=== PATIENT | male | born 1960 | race Hispanic/Latino ===

== ENCOUNTER 2018-02-22 07:05 | Day surgery (SDC) | payer MEDICAID ==
[2016-06-14 13:24] VITALS: BMI 26.6
[2016-06-22 15:00] VITALS: PULSE 91
[2018-02-22] MEDS ORDERED: Lactated Ringer's 500 ML IV ONE (07:46)
[2018-02-22 08:03] VITALS: TEMP 96.8
[2018-02-22] MEDS ORDERED: Etomidate 20 mg/10ml Inj IV ONE (08:49)
[2018-02-22] MEDS ORDERED: Midazolam 2 MG/2 ML VIAL ONE (08:49)
[2018-02-22 09:45] VITALS: BP 111/60; PULSE 72; RESP 21; O2SAT 97
== END 2018-02-22 10:07 | disposition home or self-care (01) ==
LOC: H.ENDO 07:05
PROVIDERS: ATTEND Internal Medicine Gastroenterology
DX: Z12.11 Encounter for screening for malignant neoplasm of colon (principal); D12.0 Benign neoplasm of cecum; D12.2 Benign neoplasm of ascending colon; K57.30 Diverticulosis of large intestine without perforation or abscess without bleeding; K64.8 Other hemorrhoids; Z86.010 Personal history of colon polyps
CPT/HCPCS: 45380; 88305; J2001; J2250; J7120

== ENCOUNTER 2019-01-19 18:15 | Inpatient (IN) | payer BC ==
[2019-01-19 18:15] VITALS: PULSE 91; BMI 26.6
[2019-01-19 19:00] LABS: BASO # 0.1 K/uL (0.0-0.2); BASO % 0.8 % (0.0-2.0); EOS # 1.3 K/uL (0.0-0.7); EOS % 13.2 % (0.0-4.0); LYMPH % 20.6 % (20.0-40.0); MEAN CORPUSCULAR HEMOGLOBIN 32.3 pg (27.0-31.0); MEAN CORPUSCULAR HGB CONC 34.1 g/dL (33.0-37.0); MEAN PLATELET VOLUME 7.9 fl (7.2-11.7); MONO # 0.7 K/uL (0.0-0.8); MONO % 6.6 % (0.0-10.0); NEUT # 5.8 K/uL (1.8-7.0); NEUT % 58.8 % (50.0-75.0); RBC 4.04 Mil/uL (4.40-5.90); RED CELL DISTRIBUTION WIDTH 13.7 % (11.5-14.5); WHITE BLOOD COUNT 9.9 K/uL (4.8-10.8)
--- NOTE | 2019-01-19 19:01 | CT ---
Date of service: 01/19/2019 PROCEDURE: CT HEAD WITHOUT CONTRAST. HISTORY: TIA, initial exam COMPARISON: No prior study available for comparison. TECHNIQUE: Axial computed tomography images were obtained through the head/brain without intravenous contrast. Radiation dose: Total exam DLP = 981.7 mGy-cm. This CT exam was performed using one or more of the following dose reduction techniques: Automated exposure control, adjustment of the mA and/or kV according to patient size, and/or use of iterative reconstruction technique. FINDINGS: HEMORRHAGE: No acute parenchymal, subarachnoid or extra-axial hemorrhage. BRAIN: Moderate chronic periventricular white matter ischemic changes seen extending peripherally into the deep and subcortical white matter both cerebral hemispheres. In addition, multiple more discrete subcortical and deep white matter ischemic changes and bilateral basal nuclei lacunar type infarcts are present. Note the possibility of a small hyperacute infarct cannot be excluded based on this study. Clinical correlation recommended. Emergent MRI could be performed if further evaluation is required. Note that these findings were discussed with Dr. Neumann is at approximately 6:54 p.m. with written down and read back verification. Moderate generalized volume loss. Vascular calcifications both carotid siphons. VENTRICLES: No obstructive hydrocephalus. CALVARIUM: Calvarium intact. PARANASAL SINUSES: There is a large elliptical shaped soft tissue density within the right maxillary antrum that could represent large polyp.. This is surrounded by lower attenuation opacity which could represent fluid. Questionable polyps within the right nasal cavity versus possible extension of the aforementioned inflammatory process or possibly mucocele medially through the wall of the right maxillary antrum. Follow-up ENT consultation may be prudent for further evaluation There is also mild mucosal thickening seen within the ethmoid air complex and to a lesser degree sphenoid sinus. MASTOID AIR CELLS: Unremarkable as visualized. No inflammatory changes. OTHER FINDINGS: Changes of bilateral cataract surgery. IMPRESSION: No acute intracranial hemorrhage. Moderate chronic periventricular white matter ischemic changes seen extending peripherally into the deep and subcortical white matter both cerebral hemispheres. In addition, multiple more discrete subcortical and deep white matter ischemic changes and bilateral basal nuclei lacunar type infarcts are present. Note the possibility of a small hyperacute infarct cannot be excluded based on this study. Clinical correlation recommended. Emergent MRI could be performed if further evaluation is required. Note that these findings were discussed with Dr. Neumann is at approximately 6:54 p.m. with written down and read back verification. Moderate generalized volume loss. Complete opacification right maxillary antrum with what appears represent elliptical shaped on focus of polypoid like mucosal thickening and peripheral surrounding low-attenuation proteinaceous fluid.. Questionable protrusion of these changes medially into the nasal cavity (such as a mucocele) versus possibility of a nasal polyp. Consider follow-up ENT consultation.
[2019-01-19 19:03] LABS: HEMOGLOBIN 13.1 g/dL (12.0-18.0); MEAN CELL VOLUME 94.8 fl (80.0-94.0)
[2019-01-19] MEDS ORDERED: Iodixanol 320 MG/ML 100 ML BOTTLE IV ONE (19:03)
[2019-01-19] MEDS ORDERED: Sodium Chloride 0.9% 50 ML IV ONE (19:03)
[2019-01-19 19:12] LABS: INR 0.9; PROTHROMBIN TIME 10.7 Seconds (9.8-13.1)
[2019-01-19] MEDS ORDERED: Aspirin 325 mg EC Tablets PO ONE (19:12)
[2019-01-19 19:13] LABS: ALB/GLOB RATIO 1.6 (1.0-2.1); ALBUMIN 4.1 g/dL (3.5-5.0); ALT/SGPT 38 U/L (21-72); AST/SGOT 29 U/L (17-59); BLOOD UREA NITROGEN 18 mg/dl (9-20); CALCIUM 9.5 mg/dL (8.4-10.2); GFR NON-AFRICAN AMERICAN 57; HDL CHOLESTEROL 38 MG/DL (30-70)
[2019-01-19] MEDS ORDERED: Aspirin 325 mg EC Tablets PO STA (19:13)
[2019-01-19 19:14] LABS: PARTIAL THROMBOPLASTIN TIME 30.8 Seconds (25.6-37.1)
--- NOTE | 2019-01-19 19:15 | ED PDOC ---
HPI:STROKE - Time Time: 18:30 - Historian Historian: Patient - Chief Complaint Chief Complaint: Arm weakness (and numbness) - Onset Date: 01/19/19 Time: 07:30 Onset: This morning - Timing Timing: Currently Symptomatic - Notes: Notes:: 58 year old male presents to the ED for evaluation of right arm weakness and numbness which he woke up with this morning around 0730. He states his arm feels heavy. Patient has a history of TIA that caused right sided facial droop, but no arm weakness. Today, he notes having difficulty balancing, but denies further headache, shortness of breath, and chest pain. He says that he did not come in right away because he thought it was secondary to sleeping on the arm awkwardly, but when he told his when she got home, she told him to come in. NIHSS Stroke Scale - Date/Time Evaluation Performed Date Performed: 01/19/19 Time Performed: 18:30 When Was NIHSS Performed: Baseline - How Severe is the Stroke Level of Consciousness: 0=Alert LOC to Questions: 0=Both comments correct LOC to commands: 0=Obeys both correctly Best Gaze: 0=Normal Visual: 0=No visual loss Facial: 1=Minor asymmetry Motor Arm - Left: 0=No drift Motor Arm - Right: 1=Drift noted before 10 sec Motor Leg - Left: 0=No drift Motor Leg - Right: 0=No drift Limb Ataxia: 0=Absent Sensory: 0=Normal Best Language: 0=No aphasia Dysarthia: 0=Normal articulation Extinction & Inattention (Neglect): 0=Normal, no object Score: 2 rTPA Inclusion/Exclusion - Refusal of Treatment Patient Refused Treatment: No - Inclusion Criteria for Altepase All of the below criteria for inclusion were reviewed: Yes Patient is 18 years or Older: Yes The Clinical Diagnosis of Ischemic Stroke That is Causing a Potentially Disabling Neurological Deficit: Yes Time of Onset is Well Established to be Less Than 270 Minute Before Treatment Would Begin: No Risk/Benefit Discussed With Patient/Family Member Present: No Past Medical History Reviewed: Historical Data, Nursing Documentation, Vital Signs Vital Signs: Last Vital Signs Temp 98.1 F 01/19/19 18:57 Pulse 83 01/19/19 18:57 Resp 16 01/19/19 18:57 BP 134/75 01/19/19 18:57 Pulse Ox 98 01/19/19 18:57 Primary Care Provider: Kandice Wong - Medical History PMH: Anxiety, Cardia Arrhythmia, COPD, Diabetes (pre-diabetic), Emphysema, Hypercholesterolemia, Chronic Kidney Disease, TIA Denies: HIV - Surgical History Other surgeries: cardaic ablation - Family History Family History: States: Hypertension - Social History Current smoker - smoking cessation education provided: Yes - Home Medications Home Medications: Ambulatory Orders Medication Instructions Recorded Atorvastatin Calcium [Lipitor] 40 mg PO DAILY #0 tab 03/18/15 Aspirin [Ecotrin] 81 mg PO DAILY #0 tabec 06/23/16 Escitalopram [Lexapro] 2 tab PO DAILY 02/22/18 - Allergies Allergies/Adverse Reactions: Allergies Allergy/AdvReac Type Severity Reaction Status Date / Time No Known Allergies Allergy Verified 02/22/18 07:53 Review of Systems ROS Statement: Except As Marked, All Systems Reviewed And Found Negative Cardiovascular: Negative for: Chest Pain Respiratory: Negative for: Shortness of Breath Neurological: Positive for: Weakness (right arm), Numbness (right arm), Incoordination (difficulty balancing all day), Other (baseline right facial droop). Negative for: Headache Physical Exam - Reviewed Nursing Documentation Reviewed: Yes Vital Signs Reviewed: Yes - Physical Exam Appears: Positive for: Non-toxic, No Acute Distress Head Exam: Positive for: ATRAUMATIC, NORMOCEPHALIC Skin: Positive for: Warm, Dry Eye Exam: Positive for: EOMI, PERRL ENT: Negative for: Pharyngeal Erythema, Tonsillar Exudate Neck: Positive for: Painless ROM, Supple Cardiovascular/Chest: Positive for: Regular Rate, Rhythm. Negative for: Murmur Respiratory: Positive for: Normal Breath Sounds. Negative for: Respiratory Di stress Gastrointestinal/Abdominal: Positive for: Soft. Negative for: Tenderness Back: Positive for: Normal Inspection. Negative for: Decreased ROM Extremity: Positive for: Normal ROM. Negative for: Deformity Lymphatic: Negative for: Adenopathy Neurological/Psych: Positive for: Awake, Alert, Oriented (x3), Cerebellar Tests (normal finger to nose and heel to gardiner), Facial Droop (right sided - reported as old), Other (right pronator drift; speech normal) - Laboratory Results Result Diagrams: 01/19/19 18:50 01/19/19 18:50 - ECG ECG: Positive for: Interpreted By Me ECG Rhythm: Positive for: Normal ST Segment, Sinus Rhythm, Right Bundle Branch Block O2 Sat by Pulse Oximetry: 98 (RA) Pulse Ox Interpretation: Normal - Progress Re-evaluation Time: 20:00 Condition: Unchanged Medical Decision Making Medical Decision Making: Time: 1840 Initial Impression: right arm weakness Initial Plan: --Code stroke called --CT Angio --CT Head without contrast --EKG --CMP --Hemoglobin A1C --Lipid panel --Trop I --CBC with differential --PT / PTT --CXR --Accucheck --Aspirin 325mg PO --Normal saline IV Accession No. : [id number] Patient Name / ID : RUMA Cleaning / [id number] Exam Date : 01/19/2019 18:44:04 ( Approved ) Study Comment : Sex / Age : M / 58Y Creator : Nathan Davis MD Dictator : Nathan Davis MD Rv Body Mechanic : Storeroom Keeper : Nathan Davis MD Approver2 : Report Date : 01/19/2019 18:57:45 My Comment : Date of service: 01/19/2019 PROCEDURE: CT HEAD WITHOUT CONTRAST. HISTORY: TIA, initial exam COMPARISON: No prior study available for comparison. TECHNIQUE: Axial computed tomography images were obtained through the head/brain without intravenous contrast. Radiation dose: Total exam DLP = 981.7 mGy-cm. This CT exam was performed using one or more of the following dose reduction techniques: Automated exposure control, adjustment of the mA and/or kV according to patient size, and/or use of iterative reconstruction technique. FINDINGS: HEMORRHAGE: No acute parenchymal, subarachnoid or extra-axial hemorrhage. BRAIN: Moderate chronic periventricular white matter ischemic changes seen extending peripherally into the deep and subcortical white matter both cerebral hemispheres. In addition, multiple more discrete subcortical and deep white matter ischemic changes and bilateral basal nuclei lacunar type infarcts are present. Note the possibility of a small hyperacute infarct cannot be excluded based on this study. Clinical correlation recommended. Emergent MRI could be performed if further evaluation is required. Note that these findings were discussed with Dr. Neumann is at approximately 6:54 p.m. with written down and read back verification. Moderate generalized volume loss. Vascular calcifications both carotid siphons. VENTRICLES: No obstructive hydrocephalus. CALVARIUM: Calvarium intact. PARANASAL SINUSES: There is a large elliptical shaped soft tissue density within the right maxillary antrum that could represent large polyp.. This is surrounded by lower attenuation opacity which could represent fluid. Questionable polyps within the right nasal cavity versus possible extension of the aforementioned inflammatory process or possibly mucocele medially through the wall of the right maxillary antrum. Follow-up ENT consultation may be prudent for further evaluation There is also mild mucosal thickening seen within the ethmoid air complex and to a lesser degree sphenoid sinus. MASTOID AIR CELLS: Unremarkable as visualized. No inflammatory changes. OTHER FINDINGS: Changes of bilateral cataract surgery. IMPRESSION: No acute intracranial hemorrhage. Moderate chronic periventricular white matter ischemic changes seen extending peripherally into the deep and subcortical white matter both cerebral hemispheres. In addition, multiple more discrete subcortical and deep white matter ischemic changes and bilateral basal nuclei lacunar type infarcts are present. Note the possibility of a small hyperacute infarct cannot be excluded based on this study. Clinical correlation recommended. Emergent MRI could be performed if further evaluation is required. Note that these findings were disc ussed with Dr. Neumann is at approximately 6:54 p.m. with written down and read back verification. Moderate generalized volume loss. Complete opacification right maxillary antrum with what appears represent elliptical shaped on focus of polypoid like mucosal thickening and peripheral surrounding low-attenuation proteinaceous fluid.. Questionable protrusion of these changes medially into the nasal cavity (such as a mucocele) versus possibility of a nasal polyp. Consider follow-up ENT consultation. 7p SC[facility]LET [facility]. Pt to have CTA and then MRI in AM. Aspirin recommended. Will eval pt in hospital. SCARLET pt findings and plan of care SCARLET Flores Hospitalist for admission to Dr Wong [facility] Name: MAGGIE HENDRIX Exam Date: January 19, 2019 8:21:18 PM EDT Modality Type: CT Description: CTA BRAIN, CTA NECK Gender: M Laterality: Not applicable : 58 Referring Physician: Mahi Neumann EXAM: CTA Head and Neck with Intravenous Contrast. CLINICAL HISTORY: Right arm numbness TECHNIQUE: Axial CTA images of the head and neck performed with intravenous contrast. MIP reconstructed images were created and reviewed. CONTRAST: With; [id number] [id number] was injected intravenously without incident. COMPARISON: Comparison is made to CT brain evaluation performed earlier the same date. FINDINGS: VASCULATURE: NECK: COMMON CAROTID ARTERIES No significant stenosis. No dissection or occlusion. Minimal atheromatous plaquing is seen in the posterior right carotid bulb. EXTERNAL CAROTID ARTERIES Patent. NECK: INTERNAL CAROTID ARTERIES No stenosis by NASCET criteria. No dissection or occlusion. VERTEBRAL ARTERIES No significant stenosis. No dissection or occlusion. HEAD: ANTERIOR CEREBRAL ARTERIES No significant stenosis. No occlusion. No aneurysm. MIDDLE CEREBRAL ARTERIES No significant stenosis. No occlusion. No aneurysm. POSTERIOR CEREBRAL ARTERIES No significant stenosis. No occlusion. No aneurysm. BASILAR ARTERY No significant stenosis. No occlusion. No aneurysm. OTHER: SOFT TISSUES No acute finding. BONES No acute osseous abnormality. There is evidence of degenerative disc disease seen at C3-4, C5-6, C6-7. PARANASAL SINUSES: Total opacification of the right maxillary sinus and mucoperiosteal thickening noted in the inferior left maxillary sinus compatible with sinusitis. IMPRESSION: 1. Minimal atheromatous plaquing seen in the posterior right carotid bulb. 2. Otherwise, unremarkable CTA of the head and neck. 3. Multilevel degenerative disc disease in the cervical spine as described above. 4. Bilateral maxillary sinusitis noted; more pronounced on the right. Electronically signed on January 19, 2019 9:28:40 PM EDT by: Aurelio Mitchell M.D., M.B.A., Certified By [employer] Trained MRI and CT Specialist Scribe Attestation: Documented by Leela De Anda, acting as a scribe for Mahi Neumann MD. Provider Scribe Attestation: All medical record entries made by the Scribe were at my direction and personally dictated by me. I have reviewed the chart and agree that the record accurately reflects my personal performance of the history, physical exam, medical decision making, and the department course for this patient. I have also personally directed, reviewed, and agree with the discharge instructions and disposition. Disposition - Clinical Impression Clinical Impression: Right arm weakness Counseled Patient/Family Regarding: Studies Performed, Diagnosis - Disposition Disposition Time: 19:00 Condition: FAIR - Pt Status Changed To: Hospital Disposition Of: Inpatient - Admit Certification Admit to Inpatient:: After my assessment, the patient will require hospitalization for at least two midnights. This is because of the severity of symptoms shown, intensity of services needed, and/or the medical risk in this patient being treated as an outpatient. - POA Present On Arrival: None Core Measure Indicators: Code Stroke
[2019-01-19] MEDS: Sodium Chloride 0.9% 1,000 ML IV SCH (19:19)
[2019-01-19 19:24] LABS: LDL CHOLESTEROL 90 mg/dL (0-129)
[2019-01-19] MEDS ORDERED: Albuterol-Ipratrop 3 mg / 0.5 (3 ml) UD INH PRN (20:19)
--- NOTE | 2019-01-19 20:26 | CP.PCM.HP ---
History of Present Illness - History of Present Illness History of Present Illness: CC: numbness of hands HPI: 58 YO Male with PMHx of TIA/CVA (R sided residual facial droop), COPD, depression, ETOH and tobacco abuse presents to [facility] ED for R arm numbness. Patient states he woke up with R arm numbness this morning around 7:30AM. There was no other weakness or numbness, headache, vision, speech, or mental status change reported. Weakness and numbness in the RUQ persisted throughout the day which brought patient to the ED. present by bedside reports same story. PMD: Dr. Wong Cardiology: Dr. 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), glucoma, hx of DVT per ecw review SurhGx: cardiac ablation for arrhythmia, complicated FHx: multiple strokes in father SHx: , ETOH-vodka every other day 2-3 drinks (20+ years), smoking currently 1/5 pack a day (30+yrs) and denies illicit drug use NKDA Present on Admission - Present on Admission Any Indicators Present on Admission: No Review of Systems - Constitutional Constitutional: absent: Chills, Fever - EENT Eyes: absent: Blurred Vision - Cardiovascular Cardiovascular: absent: Chest Pain, Dyspnea, Palpitations - Respiratory Respiratory: absent: Cough, Dyspnea - Gastrointestinal Gastrointestinal: absent: Abdominal Pain - Musculoskeletal Musculoskeletal: Muscle Weakness (RUE), Numbness (RUE) - Neurological Neurological: Numbness, Focal Weakness. absent: Abnormal Gait, Abnormal Movements, Abnormal Speech, Behavioral Changes, Confusion, Dizziness, Headaches, Lack of Coordination, Syncope Past Patient History - Infectious Disease Hx of Infectious Diseases: None - Tetanus Immunizations Tetanus Immunization: Unknown, Up to Date - Past Medical History & Family History Past Medical History?: Yes - Past Social History Smoking Status: Heavy Smoker > 10 Cigarettes Daily Alcohol: > 2 Drinks/Day Drugs: Denies Home Situation {Lives}: With Family - CARDIAC Hx Cardia Arrhythmia: Yes Hx Hypercholesterolemia: Yes - PULMONARY Hx Chronic Obstructive Pulmonary Disease (COPD): Yes Hx Emphysema: Yes - NEUROLOGICAL Hx Transient Ischemic Attacks (TIA): Yes - HEENT Hx HEENT Problems: Yes Hx Cataracts: Yes Hx Glaucoma: Yes - RENAL Hx Chronic Kidney Disease: Yes - ENDOCRINE/METABOLIC Hx Endocrine Disorders: No - HEMATOLOGICAL/ONCOLOGICAL Hx Human Immunodeficiency Virus (HIV): No - INTEGUMENTARY Hx Dermatological Problems: No - MUSCULOSKELETAL/RHEUMATOLOGICAL Hx Musculoskeletal Disorders: No Hx Falls: No - GASTROINTESTINAL Hx Gastrointestinal Disorders: Yes - GENITOURINARY/GYNECOLOGICAL Hx Genitourinary Disorders: No - PSYCHIATRIC Hx Anxiety: Yes - SURGICAL HISTORY Hx Surgeries: Yes Hx Angioplasty: Yes (CARDIAC ABLATION) - ANESTHESIA Hx Anesthesia: Yes Hx Anesthesia Reactions: No Hx Malignant Hyperthermia: No Meds Allergies/Adverse Reactions: Allergies Allergy/AdvReac Type Severity Reaction Status Date / Time No Known Allergies Allergy Verified 02/22/18 07:53 Physical Exam - Constitutional Appears: No Acute Distress, Other (R sided facial droop noted, mild) - Eye Exam Eye Exam: EOMI, Normal appearance - ENT Exam ENT Exam: Mucous Membranes Moist - Respiratory Exam Respiratory Exam: Clear to Auscultation Bilateral, Wheezes (faint wheezing lower lobes), NORMAL BREATHING PATTERN. absent: Decreased Breath Sounds - Cardiovascular Exam Cardiovascular Exam: REGULAR RHYTHM, +S1, +S2 - GI/Abdominal Exam GI & Abdominal Exam: Distended, Normal Bowel Sounds, Soft. absent: Guarding, Rigid, Tenderness - Extremities Exam Extremities exam: Positive for: normal inspection. Negative for: calf tenderness, pedal edema - Back Exam Back exam: NORMAL INSPECTION - Neurological Exam Neurological exam: Alert, CN II-XII Intact, Oriented x3, Reflexes Normal Additional comments: No pronator drift strength 4/5 in RUE, mild decrease in sensation in the RUE Full ROM, no pain Heel to gardiner neg ambulatory and no speech defects appreciated - Psychiatric Exam Psychiatric exam: Normal Affect, Normal Mood - Skin Skin Exam: Dry, Intact, Normal Color, Warm Results - Vital Signs Recent Vital Signs: Last Vital Signs Temp 98.1 F 01/19/19 18:57 Pulse 72 01/19/19 20:05 Resp 18 01/19/19 20:05 BP 144/82 01/19/19 20:05 Pulse Ox 98 01/19/19 20:05 - Labs Result Diagrams: 01/19/19 18:50 01/19/19 18:50 Labs: Laboratory Results - last 24 hr 01/19/19 01/19/19 01/19/19 18:41 18:50 18:50 WBC 9.9 RBC 4.04 L Hgb 13.1 D Hct 38.3 MCV 94.8 H D MCH 32.3 H MCHC 34.1 RDW 13.7 Plt Count 258 MPV 7.9 Neut % (Auto) 58.8 Lymph % (Auto) 20.6 Wheeler % (Auto) 6.6 Eos % (Auto) 13.2 H Baso % (Auto) 0.8 Neut # (Auto) 5.8 Lymph # (Auto) 2.0 Wheeler # (Auto) 0.7 Eos # (Auto) 1.3 H Baso # (Auto) 0.1 PT INR APTT Sodium 139 Potassium 4.1 Chloride 105 Carbon Dioxide 24 Anion Gap 14 BUN 18 Creatinine 1.3 Est GFR ( Amer) > 60 Est GFR (Non-Af Amer) 57 POC Glucose (mg/dL) 102 Random Glucose 88 Calcium 9.5 Total Bilirubin 0.4 AST 29 ALT 38 Alkaline Phosphatase 100 Troponin I < 0.0120 Total Protein 6.8 Albumin 4.1 Globulin 2.6 Albumin/Globulin Ratio 1.6 Triglycerides 160 H D Cholesterol 144 LDL Cholesterol Direct 90 HDL Cholesterol 38 Blood Type Antibody Screen BBK History Checked 01/19/19 01/19/19 18:50 18:50 WBC RBC Hgb Hct MCV MCH MCHC RDW Plt Count MPV Neut % (Auto) Lymph % (Auto) Wheeler % (Auto) Eos % (Auto) Baso % (Auto) Neut # (Auto) Lymph # (Auto) Wheeler # (Auto) Eos # (Auto) Baso # (Auto) PT 10.7 INR 0.9 APTT 30.8 Sodium Potassium Chloride Carbon Dioxide Anion Gap BUN Creatinine Est GFR ( Amer) Est GFR (Non-Af Amer) POC Glucose (mg/dL) Random Glucose Calcium Total Bilirubin AST ALT Alkaline Phosphatase Troponin I Total Protein Albumin Globulin Albumin/Globulin Ratio Triglycerides Cholesterol LDL Cholesterol Direct HDL Cholesterol Blood Type O POSITIVE Antibody Screen Negative BBK History Checked No verified bt - EKG Data EKG shows normal: Sinus rhythm Rate: Normal (No acute ST or T waves noted ) Assessment & Plan - Assessment and Plan (Free Text) Assessment: Assessment/Plan: 58 YO Male with PMHx of TIA/CVA (R sided residual facial droop), COPD, hx of HIT, depression, DVT, ETOH and tobacco abuse is admitted for TIA. TIA -Code stroke called -CT head sig for: No acute intracranial hemorrhage. Moderate chronic periventricular white matter ischemic changes. Moderate generalized volume loss. -no tpa administered given time of presentation to ED -s/p asa in ED -Neurology consulted; asa given. MRI/CTA pending; follow up recs -MRI ordered for AM -follow up CTA -passed swallow eval -neuro checks -started on asa and statin -PT/OT consulted COPD -controlled -duonab prn Depression -restart home meds ETOH abuse -currently CIWA <8 -last drink 24+hrs ago -CIWA protocol -Ativan prn Tobacco abuse -c/w nicoderm TD DVT prolx -scds -no Lovenox or heparin given suspected episode of HIT as per PMD
[2019-01-20] MEDS: Sodium Chloride 0.9% 1,000 ML IV SCH (04:57)
[2019-01-20] MEDS ORDERED: Enoxaparin 60 mg Syringe SC SCH (09:00)
--- NOTE | 2019-01-20 11:16 | MRI ---
Date of service: 01/20/2019 PROCEDURE: MRI BRAIN WITHOUT CONTRAST HISTORY: TIA COMPARISON: MRI 03/18/2015 TECHNIQUE: Multiplanar, multisequence MR images of the brain were obtained without intravenous contrast enhancement. FINDINGS: HEMORRHAGE: None DWI: There is an acute infarct in the left aguirre radiata and basal ganglia measuring 20 mm AP x 6 mm wide. BRAIN PARENCHYMA: No mass effect or edema. Chronic microvascular changes are seen in the periventricular white matter. VENTRICLES: Unremarkable. No hydrocephalus. CRANIUM: Unremarkable. ORBITS: Grossly unremarkable. PARANASAL SINUSES/MASTOIDS: There opacification of the right maxillary sinus. VASCULAR SYSTEM: Skull base flow voids intact. OTHER FINDINGS: None. IMPRESSION: There is an acute infarct in the left aguirre radiata and basal ganglia measuring 20 mm AP x 6 mm wide.
--- NOTE | 2019-01-20 11:25 | CT ---
Date of service: 01/19/2019 PROCEDURE: CT Angiography of the neck with contrast HISTORY: RIGHT arm weakness COMPARISON: None. TECHNIQUE: Contiguous axial images of the neck were obtained from the level of the skull-base to the superior mediastinum in the arteriographic phase of enhancement. Coronal and sagittal reformats or also generated. IV contrast dose: 90 cc of Visipaque Radiation dose: Total exam DLP = 0.0 mGy-cm. This CT exam was performed using one or more of the following dose reduction techniques: Automated exposure control, adjustment of the mA and/or kV according to patient size, and/or use of iterative reconstruction technique. FINDINGS: RIGHT CAROTID ARTERIES: Calcified plaque without significant stenosis LEFT CAROTID ARTERIES: Calcified plaque without significant stenosis VERTEBRAL ARTERIES: Right Vertebral Artery: Normal. Left Vertebral Artery: Normal. OTHER FINDINGS: Aortic calcification The report concurs with the preliminary [facility] report IMPRESSION: Bilateral carotid calcifications without significant stenosis CT Angiography of the Brain. HISTORY: RIGHT arm weakness COMPARISON: None available. TECHNIQUE: CT angiography of the intracranial arteries was performed. Coronal and sagittal maximum intensity projection reformated images were generated. Radiation dose: Total exam DLP = 0.0 mGy-cm. This CT exam was performed using one or more of the following dose reduction techniques: Automated exposure control, adjustment of the mA and/or kV according to patient size, and/or use of iterative reconstruction technique. FINDINGS: INTERNAL CEREBRAL ARTERIES: Unremarkable. The skull base, petrous, cavernous and supraclinoid segments are bilaterally widely patent. ANTERIOR CEREBRAL ARTERIES: Unremarkable. A1 and A2 segments are widely patent. Smaller distal branches unremarkable, as visualized. MIDDLE CEREBRAL ARTERIES: Unremarkable. M1 and M2 segments are widely patent. Perisylvian branches grossly symmetric. POSTERIOR CIRCULATION: Basilar Artery: Unremarkable. Distal Vertebral Arteries: Unremarkable. Posterior Cerebral Arteries: Unremarkable. Posterior Inferior Cerebellar Arteries: Unremarkable. ANEURYSM/ VASCULAR MALFORMATIONS: None. OTHER FINDINGS: Complete opacification of the right maxillary sinus. Mucosal thickening in the left maxillary sinus IMPRESSION: Unremarkable CT Angiography of the Brain.
--- NOTE | 2019-01-20 11:54 | CARD ---
APPROVED REPORT Date of service: 01/19/2019 EKG Measurement Heart [id number] <Conclusion> Normal sinus rhythm Left axis deviation Right bundle branch block Abnormal ECG
--- NOTE | 2019-01-20 13:49 | CP.PCM.CON ---
History of Present Illness - History of Present Illness History of Present Illness: Neurology consult note: 58 yr old male who came in as a code stroke but was not TPA candidate now has new Right basal ganglia stroke, that is most likely ischemic in nature, who now has right hand weakness, and is doing well. Past Patient History - Infectious Disease Hx of Infectious Diseases: None - Tetanus Immunizations Tetanus Immunization: Unknown, Up to Date - Past Medical History & Family History Past Medical History?: Yes - Past Social History Smoking Status: Former Smoker - CARDIAC Hx Cardia Arrhythmia: Yes Hx Hypercholesterolemia: Yes - PULMONARY Hx Chronic Obstructive Pulmonary Disease (COPD): Yes Hx Emphysema: Yes - NEUROLOGICAL Hx Transient Ischemic Attacks (TIA): Yes - HEENT Hx HEENT Problems: Yes - RENAL Hx Chronic Kidney Disease: Yes - ENDOCRINE/METABOLIC Hx Endocrine Disorders: No - HEMATOLOGICAL/ONCOLOGICAL Hx Human Immunodeficiency Virus (HIV): No - INTEGUMENTARY Hx Dermatological Problems: No - MUSCULOSKELETAL/RHEUMATOLOGICAL Hx Musculoskeletal Disorders: No Hx Falls: No - GASTROINTESTINAL Hx Gastrointestinal Disorders: Yes - GENITOURINARY/GYNECOLOGICAL Hx Genitourinary Disorders: No - PSYCHIATRIC Hx Anxiety: Yes Hx Substance Use: No - SURGICAL HISTORY Hx Surgeries: Yes Hx Angioplasty: Yes (CARDIAC ABLATION) - ANESTHESIA Hx Anesthesia: Yes Hx Anesthesia Reactions: No Hx Malignant Hyperthermia: No Meds Allergies/Adverse Reactions: Allergies Allergy/AdvReac Type Severity Reaction Status Date / Time No Known Allergies Allergy Verified 02/22/18 07:53 - Medications Medications: Current Medications Acetaminophen (Tylenol 325mg Tab) 650 mg PO Q6 PRN PRN Reason: Pain, Mild (1-3) Acetaminophen (Tylenol 325mg Tab) 650 mg PO Q6 PRN PRN Reason: Fever >100.4 F Albuterol/Ipratropium (Duoneb 3 Mg/0.5 Mg (3 Ml) Ud) 3 ml INH RQ6 PRN PRN Reason: Shortness of Breath Aspirin (Ecotrin) 81 mg PO DAILY [facility] Last Admin: 01/20/19 10:34 Dose: 81 mg Atorvastatin Calcium (Lipitor) 40 mg PO DAILY [facility] Last Admin: 01/20/19 10:34 Dose: 40 mg Escitalopram Oxalate (Lexapro) 20 mg PO DAILY [facility] Last Admin: 01/20/19 10:34 Dose: 20 mg Sodium Chloride (Sodium Chloride 0.9%) 1,000 mls @ 100 mls/hr IV .Q10H [facility] Last Admin: 01/20/19 04:57 Dose: 100 mls/hr Ibuprofen (Motrin Tab) 400 mg PO Q6 PRN PRN Reason: Fever >100.4 F Lorazepam (Ativan) 2 mg IVP Q6 PRN PRN Reason: Symptoms of alcohol withdrawl Nicotine (Nicoderm Cq) 1 patch TD DAILY [facility] Last Admin: 01/20/19 10:35 Dose: 1 patch Results - Vital Signs Recent Vital Signs: Last Vital Signs Temp 98.0 F 01/20/19 08:24 Pulse 66 01/20/19 08:24 Resp 20 01/20/19 08:24 BP 149/75 01/20/19 08:24 Pulse Ox 96 01/20/19 08:24 - Labs Result Diagrams: 01/19/19 18:50 01/19/19 18:50 Labs: Laboratory Results - last 24 hr 01/19/19 01/19/19 01/19/19 18:41 18:50 18:50 WBC 9.9 RBC 4.04 L Hgb 13.1 D Hct 38.3 MCV 94.8 H D MCH 32.3 H MCHC 34.1 RDW 13.7 Plt Count 258 MPV 7.9 Neut % (Auto) 58.8 Lymph % (Auto) 20.6 [place] % (Auto) 6.6 Eos % (Auto) 13.2 H Baso % (Auto) 0.8 Neut # (Auto) 5.8 Lymph # (Auto) 2.0 [place] # (Auto) 0.7 Eos # (Auto) 1.3 H Baso # (Auto) 0.1 PT INR APTT Sodium 139 Potassium 4.1 Chloride 105 Carbon Dioxide 24 Anion Gap 14 BUN 18 Creatinine 1.3 Est GFR ( Amer) > 60 Est GFR (Non-Af Amer) 57 POC Glucose (mg/dL) 102 Random Glucose 88 Calcium 9.5 Total Bilirubin 0.4 AST 29 ALT 38 Alkaline Phosphatase 100 Troponin I < 0.0120 Total Protein 6.8 Albumin 4.1 Globulin 2.6 Albumin/Globulin Ratio 1.6 Triglycerides 160 H D Cholesterol 144 LDL Cholesterol Direct 90 HDL Cholesterol 38 Blood Type Blood Type Confirm Antibody Screen BBK History Checked 01/19/19 01/19/19 01/20/19 18:50 18:50 05:00 WBC RBC Hgb Hct MCV MCH MCHC RDW Plt Count MPV Neut % (Auto) Lymph % (Auto) [place] % (Auto) Eos % (Auto) Baso % (Auto) Neut # (Auto) Lymph # (Auto) [place] # (Auto) Eos # (Auto) Baso # (Auto) PT 10.7 INR 0.9 APTT 30.8 Sodium Potassium Chloride Carbon Dioxide Anion Gap BUN Creatinine Est GFR ( Amer) Est GFR (Non-Af Amer) POC Glucose (mg/dL) Random Glucose Calcium Total Bilirubin AST ALT Alkaline Phosphatase Troponin I Total Protein Albumin Globulin Albumin/Globulin Ratio Triglycerides Cholesterol LDL Cholesterol Direct HDL Cholesterol Blood Type O POSITIVE Blood Type Confirm O POSITIVE Antibody Screen Negative BBK History Checked No verified bt
--- NOTE | 2019-01-20 13:54 | CP.PCM.PN ---
Subjective - Date & Time of Evaluation Date of Evaluation: 01/20/19 Time of Evaluation: 07:00 - Subjective Subjective: Patient seen and examined at bedside. Patient MRI is Positive for CVA. Patient still had weakness on right arm and decrease sensation. Otherwise patient have no complaints. He will be working with PT and OT during the day. Objective - Vital Signs/Intake and Output Vital Signs (last 24 hours): Temp Pulse Resp BP Pulse Ox 98.4 F 73 20 134/79 97 01/20/19 13:51 01/20/19 13:51 01/20/19 13:51 01/20/19 13:51 01/20/19 13:51 - Medications Medications: Current Medications Acetaminophen (Tylenol 325mg Tab) 650 mg PO Q6 PRN PRN Reason: Pain, Mild (1-3) Acetaminophen (Tylenol 325mg Tab) 650 mg PO Q6 PRN PRN Reason: Fever >100.4 F Albuterol/Ipratropium (Duoneb 3 Mg/0.5 Mg (3 Ml) Ud) 3 ml INH RQ6 PRN PRN Reason: Shortness of Breath Aspirin (Ecotrin) 81 mg PO DAILY [facility] Last Admin: 01/20/19 10:34 Dose: 81 mg Atorvastatin Calcium (Lipitor) 40 mg PO DAILY [facility] Last Admin: 01/20/19 10:34 Dose: 40 mg Escitalopram Oxalate (Lexapro) 20 mg PO DAILY [facility] Last Admin: 01/20/19 10:34 Dose: 20 mg Sodium Chloride (Sodium Chloride 0.9%) 1,000 mls @ 100 mls/hr IV .Q10H [facility] Last Admin: 01/20/19 04:57 Dose: 100 mls/hr Ibuprofen (Motrin Tab) 400 mg PO Q6 PRN PRN Reason: Fever >100.4 F Lorazepam (Ativan) 2 mg IVP Q6 PRN PRN Reason: Symptoms of alcohol withdrawl Nicotine (Nicoderm Cq) 1 patch TD DAILY [facility] Last Admin: 01/20/19 10:35 Dose: 1 patch - Labs Labs: 01/19/19 18:50 01/19/19 18:50 PT 10.7 Seconds (9.8-13.1) 01/19/19 18:50 INR 0.9 01/19/19 18:50 APTT 30.8 Seconds (25.6-37.1) 01/19/19 18:50 - Constitutional Appears: Well, Non-toxic, No Acute Distress - Head Exam Head Exam: ATRAUMATIC, NORMAL INSPECTION, NORMOCEPHALIC - Eye Exam Eye Exam: EOMI, Normal appearance, PERRL Pupil Exam: NORMAL ACCOMODATION, PERRL - ENT Exam ENT Exam: Mucous Membranes Moist, Normal Exam - Neck Exam Neck Exam: Full ROM, Normal Inspection - Respiratory Exam Respiratory Exam: Rales, NORMAL BREATHING PATTERN - Cardiovascular Exam Cardiovascular Exam: REGULAR RHYTHM, +S1, +S2 - GI/Abdominal Exam GI & Abdominal Exam: Soft, Normal Bowel Sounds - Back Exam Back Exam: NORMAL INSPECTION - Neurological Exam Neurological Exam: Alert, Awake, Normal Gait - Psychiatric Exam Psychiatric exam: Normal Affect, Normal Mood - Skin Skin Exam: Dry, Intact, Normal Color, Warm Assessment and Plan - Assessment and Plan (Free Text) Assessment: 58 YO Male with PMHx of TIA/CVA (R sided residual facial droop), COPD, hx of HIT, depression, DVT, ETOH and tobacco abuse is admitted for acute CVA in the left aguirre radiata and basal ganglia measuring 20mm AP x 6mm wide noted on Brain MRI. CT head sig for: No acute intracranial hemorrhage. Moderate chronic periventricular white matter ischemic changes. Moderate generalized volume loss. Patient has right upper extremity weakness and numbness that is improving. 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 -Further workup up of CVA pending. Echo completed. -Follow up with Dr. Ascencio Patient seen and examined with Dr. Wong.
--- NOTE | 2019-01-20 14:43 | RAD ---
Date of service: 01/19/2019 HISTORY: Code Stroke COMPARISON: 06/21/2016 TECHNIQUE: 1 view obtained. FINDINGS: LUNGS: No active pulmonary disease. PLEURA: No significant pleural effusion identified, no pneumothorax apparent. CARDIOVASCULAR: No aortic atherosclerotic calcification present. Normal cardiac size. No pulmonary vascular congestion. OSSEOUS STRUCTURES: No significant abnormalities. VISUALIZED UPPER ABDOMEN: Normal. OTHER FINDINGS: None. IMPRESSION: No active disease.
--- NOTE | 2019-01-20 21:11 | CARD ---
APPROVED REPORT Date of service: 01/20/2019 EXAM: Two-dimensional and M-mode echocardiogram with Doppler, color Doppler with bubble study. Other Information Quality : GoodRhythm : NSR INDICATION CVA/TIA Echo Enhancing Agent Indication: Rule Out Septal Defect Agent/Amount Used: Agitated Saline 2D DIMENSIONS IVSd1.36 (0.7-1.1cm)LVDd3.51 (3.9-5.9cm) LVOT Diameter2.59 (1.8-2.4cm)PWd1.03 (0.7-1.1cm) IVSs1.38 (0.8-1.2cm)LVDs3.05 (2.5-4.0cm) FS (%) 13.2 %PWs1.62 (0.8-1.2cm) M-Mode DIMENSIONS Left Atrium (MM)4.93 (2.5-4.0cm)IVSd1.06 (0.7-1.1cm) Aortic Root3.84 (2.2-3.7cm)LVDd5.66 (4.0-5.6cm) Aortic Cusp Exc.2.18 (1.5-2.0cm)PWd1.03 (0.7-1.1cm) IVSs1.65 cmFS (%) 48 % LVDs2.94 (2.0-3.8cm)PWs1.16 cm Aortic Valve AoV Peak Iseyzpme161.2cm/sAoV VTI24.2cmAO Peak GR.7mmHg LVOT Peak Vfziovcj813.9cm/sLVOT VTI21.93cmAO Mean GR.4mmHg WADE (VMAX)2.76ce0OSV (VTI)2.62cm2 Mitral Valve MV E Kygghhpd51.1cm/sMV DECEL GUUD333ycXK A Uajapmhy63.8cm/s MV SLX76ylG/A ratio0.9MVA (PHT)2.98cm2 TDI Lateral E' Peak V12.30cm/sMedial E' Peak V10.67cm/sE/Lateral E'6.0 E/Medial E'6.9 LEFT VENTRICLE The left ventricle is normal size. There is normal left ventricular wall thickness. The left ventricular systolic function is normal. The estimated ejection fraction is 55-60% No regional wall motion abnormalities noted.. Transmitral Doppler flow pattern is Grade I-abnormal relaxation pattern. No left ventricle thrombus noted on this study. There is no ventricular septal defect visualized. There is no left ventricular aneurysm. There is no mass noted in the left ventricle. RIGHT VENTRICLE The right ventricle is normal size. There is normal right ventricular wall thickness. The right ventricular systolic function is normal. ATRIA The left atrium is mildly dilated. The right atrium size is normal. The interatrial septum is intact with no evidence for an atrial septal defect, demonstrated on bubble study. AORTIC VALVE The aortic valve is normal in structure. No aortic regurgitation is present. There is no aortic valvular stenosis. There is no aortic valvular vegetation. MITRAL VALVE The mitral valve is normal in structure. There is no evidence of mitral valve prolapse. There is no mitral valve stenosis. There is no mitral valve regurgitation noted. TRICUSPID VALVE The tricuspid valve is normal in structure. There is no tricuspid valve regurgitation noted. There is no tricuspid valve prolapse or vegetation. There is no tricuspid valve stenosis. PULMONIC VALVE The pulmonary valve is normal in structure. There is no pulmonic valvular regurgitation. There is no pulmonic valvular stenosis. GREAT VESSELS The aortic root is normal in size. The ascending aorta is normal in size. The pulmonary artery is normal. The IVC is normal in size and collapses >50% with inspiration. PERICARDIAL EFFUSION There is no pericardial effusion. There is no pleural effusion. <Conclusion> The estimated ejection fraction is 55-60% Transmitral Doppler flow pattern is Grade I-abnormal relaxation pattern. The left atrium is mildly dilated. There is no tricuspid valve regurgitation noted. The interatrial septum is intact with no evidence for an atrial septal defect, demonstrated on bubble study.
[2019-01-21] VITALS: RESP 18
--- NOTE | 2019-01-21 10:00 | PQF ---
PROVIDER RESPONSE TEXT: Major depression mild REVIEWER QUERY TEXT: Depression Type Depression is documented in the Medical Record. Please specify the type if known Such as: -- Agitated depression -- Anxiety depression, mild or not persistent -- Anxiety depression, persistent -- Hysterical depression -- Major depression (Please specify severity - mild, moderate, severe) -- Bipolar depression -- Reactive -- Situational / Grief reaction -- Other, please specify H and P includes: Depression -restart home meds The patient's Clinical Indicators include: -- Query created by: Moni Mejia on 01/20/2019 2:47 PM Electronically signed by: Vonnie Morris 01/21/2019 9:56 AM
--- NOTE | 2019-01-21 11:03 | CP.PCM.DIS ---
Provider - Provider Date of Admission: 01/19/19 19:34 Attending physician: Kandice Wong MD Primary care physician: Dr. Wong Consults: 01/19/19 21:14 Neurology Consult Stat Comment: Consulting Provider: America Ascencio Consulting Physician: America Ascencio Reason for Consult: code stroke Time Spent in preparation of Discharge (in minutes): 35 Diagnosis - Discharge Diagnosis (1) Ischemic cerebrovascular accident (CVA) Status: Acute Comment: Started on Plavix 75mg daily. Increase Atorvastatin to 80mg. Continue aspirin 81mg. Follow up with Neurology outpatient and Occupational Therapy outpatient. (2) History of tobacco abuse Status: Chronic Comment: counseled on smoking cessation, outpatient follow up. (3) Major depression, chronic Status: Chronic Comment: managed with Lexapro, continue (4) Hyperlipidemia Status: Chronic Hospital Course - Lab Results Lab Results: Most Recent Lab Values WBC 9.9 K/uL (4.8-10.8) 01/19/19 18:50 RBC 4.04 Mil/uL (4.40-5.90) L 01/19/19 18:50 Hgb 13.1 g/dL (12.0-18.0) D 01/19/19 18:50 Hct 38.3 % (35.0-51.0) 01/19/19 18:50 MCV 94.8 fl (80.0-94.0) H D 01/19/19 18:50 MCH 32.3 pg (27.0-31.0) H 01/19/19 18:50 MCHC 34.1 g/dL (33.0-37.0) 01/19/19 18:50 RDW 13.7 % (11.5-14.5) 01/19/19 18:50 Plt Count 258 K/uL (130-400) 01/19/19 18:50 MPV 7.9 fl (7.2-11.7) 01/19/19 18:50 Neut % (Auto) 58.8 % (50.0-75.0) 01/19/19 18:50 Lymph % (Auto) 20.6 % (20.0-40.0) 01/19/19 18:50 [place] % (Auto) 6.6 % (0.0-10.0) 01/19/19 18:50 Eos % (Auto) 13.2 % (0.0-4.0) H 01/19/19 18:50 Baso % (Auto) 0.8 % (0.0-2.0) 01/19/19 18:50 Neut # (Auto) 5.8 K/uL (1.8-7.0) 01/19/19 18:50 Lymph # (Auto) 2.0 K/uL (1.0-4.3) 01/19/19 18:50 [place] # (Auto) 0.7 K/uL (0.0-0.8) 01/19/19 18:50 Eos # (Auto) 1.3 K/uL (0.0-0.7) H 01/19/19 18:50 Baso # (Auto) 0.1 K/uL (0.0-0.2) 01/19/19 18:50 PT 10.7 Seconds (9.8-13.1) 01/19/19 18:50 INR 0.9 01/19/19 18:50 APTT 30.8 Seconds (25.6-37.1) 01/19/19 18:50 Sodium 139 mmol/l (132-148) 01/19/19 18:50 Potassium 4.1 MMOL/L (3.6-5.0) 01/19/19 18:50 Chloride 105 mmol/L (98-107) 01/19/19 18:50 Carbon Dioxide 24 mmol/L (22-30) 01/19/19 18:50 Anion Gap 14 (10-20) 01/19/19 18:50 BUN 18 mg/dl (9-20) 01/19/19 18:50 Creatinine 1.3 mg/dl (0.8-1.5) 01/19/19 18:50 Est GFR ( Amer) > 60 01/19/19 18:50 Est GFR (Non-Af Amer) 57 01/19/19 18:50 POC Glucose (mg/dL) 102 mg/dL (65-110) 01/19/19 18:41 Random Glucose 88 mg/dL (75-110) 01/19/19 18:50 Hemoglobin A1c 6.5 % (4.2-6.5) 01/19/19 18:50 Calcium 9.5 mg/dL (8.4-10.2) 01/19/19 18:50 Total Bilirubin 0.4 mg/dl (0.2-1.3) 01/19/19 18:50 AST 29 U/L (17-59) 01/19/19 18:50 ALT 38 U/L (21-72) 01/19/19 18:50 Alkaline Phosphatase 100 U/L (38-126) 01/19/19 18:50 Troponin I < 0.0120 ng/mL (0.00-0.120) 01/19/19 18:50 Total Protein 6.8 G/DL (6.3-8.2) 01/19/19 18:50 Albumin 4.1 g/dL (3.5-5.0) 01/19/19 18:50 Globulin 2.6 gm/dL (2.2-3.9) 01/19/19 18:50 Albumin/Globulin Ratio 1.6 (1.0-2.1) 01/19/19 18:50 Triglycerides 160 mg/DL (0-149) H D 01/19/19 18:50 Cholesterol 144 mg/dL (0-199) 01/19/19 18:50 LDL Cholesterol Direct 90 mg/dL (0-129) 01/19/19 18:50 HDL Cholesterol 38 MG/DL (30-70) 01/19/19 18:50 Blood Type O POSITIVE 01/19/19 18:50 Blood Type Confirm O POSITIVE 01/20/19 05:00 Antibody Screen Negative 01/19/19 18:50 BBK History Checked No verified bt 01/19/19 18:50 - Hospital Course Hospital Course: 58 YO Male with PMHx of TIA/CVA (R sided residual facial droop), COPD, hx of HIT, depression, DVT, ETOH and tobacco abuse is admitted for acute CVA in the left aguirre radiata and basal ganglia measuring 20mm AP x 6mm wide noted on Brain MRI. CT head sig for: No acute intracranial hemorrhage. Moderate chronic periventricular white matter ischemic changes. Moderate generalized volume loss. Echocardiogram: EF 55-60%, no PFO, no atrial defect. Patient has right upper extremity weakness and numbness that is improving. Started on Plavix. Continue with Aspirin 81mg. Increase Atorvastatin to 80 mg, previously on 40mg. Discharge Exam - Head Exam Head Exam: ATRAUMATIC, NORMAL INSPECTION, NORMOCEPHALIC - Eye Exam Eye Exam: EOMI, Normal appearance, PERRL - Respiratory Exam Respiratory Exam: Decreased Breath Sounds, NORMAL BREATHING PATTERN. absent: Respiratory Distress - Cardiovascular Exam Cardiovascular Exam: REGULAR RHYTHM, +S1, +S2 - Extremities Exam Extremities exam: normal inspection - Neurological Exam Neurological exam: Alert, CN II-XII Intact, Motor Sensory Deficit (strength: right upper extremity 4/5, left upper extremity 5/5) - Psychiatric Exam Psychiatric exam: Normal Affect, Normal Mood - Skin Skin Exam: Dry, Intact, Normal Color, Warm Discharge Plan - Discharge Medications Prescriptions: Aspirin [Ecotrin] 81 mg PO DAILY 30 Days #30 tabec Atorvastatin [Lipitor] 80 mg PO DAILY #30 tab Clopidogrel [Plavix] 75 mg PO DAILY #30 tab - Follow Up Plan Condition: FAIR Disposition: HOME/ ROUTINE Patient education suggested?: Yes Instructions: Stroke (DC), Lowering the Risk of Having Another Stroke Referrals: Kandice Wong MD [Family Provider] - America Ascencio MD [Medical Doctor] -
[2019-01-21 15:58] VITALS: BP 144/79; PULSE 67; TEMP 98.5; O2SAT 96
== END 2019-01-21 16:05 | disposition home or self-care (01) | DRG 65 ==
LOC: H.ER 18:15 → H.ERHOLD 19:34 → H.TEL 21:29
PROVIDERS: ADMIT Family Medicine; ATTEND Family Medicine
DX: I63.89 Other cerebral infarction (principal); F32.0 Major depressive disorder, single episode, mild; G81.91 Hemiplegia, unspecified affecting right dominant side; J43.9 Emphysema, unspecified; F10.10 Alcohol abuse, uncomplicated; I10 Essential (primary) hypertension; I69.392 Facial weakness following cerebral infarction; E78.00 Pure hypercholesterolemia, unspecified; E78.5 Hyperlipidemia, unspecified; J32.0 Chronic maxillary sinusitis; F41.9 Anxiety disorder, unspecified; F17.210 Nicotine dependence, cigarettes, uncomplicated; Z86.718 Personal history of other venous thrombosis and embolism; Z79.82 Long term (current) use of aspirin